=== PATIENT | female | born 1990 | race Caucasian/White ===

== ENCOUNTER 2018-01-11 10:34 | Emergency (ER) | payer MEDICAID ==
[~2018-01-11] VITALS: Ht 162.6 cm; Wt 59.0 kg
[~2018-01-11 10:34] MED LIST: ACETAMINOPHEN-1 EAC1 PO; BENTYL 20 MG TA20 M1 PO; HUMIRA10 MG/0.2 SQ; LIDOCAINE VISC100 M1 SWISH&SPIT; MEDROLDOSEPACK PO; NOHOMEMEDICATIONS; NORCO 5-325 TA1 EAC1 PO; PENICILLIN V P500 MG PO; REMICADE 1100 MG/VIA; TRAMADOL 50 MG50 MG PO; ZOFRAN 4 MG ORAL4 MG PO
[2018-01-11] MEDS ORDERED: ZOFRAN ODT4 MG DISSOLVE (10:51)
[2018-01-11] MEDS ORDERED: BENTYL 10 MG CA10 M1 PO (10:51)
[2018-01-11 11:41] VITALS: BP 116/79
== END 2018-01-11 11:42 | disposition home or self-care (01) ==
LOC: M.ERS 10:34
DX: R51 Headache (principal); M19.90 Unspecified osteoarthritis, unspecified site; F17.210 Nicotine dependence, cigarettes, uncomplicated